=== PATIENT | male | born 1945 | race Caucasian/White ===

== ENCOUNTER → 2017-01-25 | Outpatient (CLI) | payer MEDICARE, OTHER ==
[~2017-01-25] MED LIST: AMLODIPINE BESY10 MG PO; BACLOFEN10 MG PO; CLOPIDOGREL BIS75 MG PO; COUMADIN4 MG PO; LIVALO4 MG PO; LO-DOSE ASPIRIN81 M1 PO; LOTENSIN20 MG PO; METOPROLOL SUCC50 MG PO; PERCOCET10 PO
--- NOTE | ~2017-01-25 | CO ---
Unit #: [id number] #: [id number] Patient: MAGDALENA BURNETT [id number] [address] [place], [place] [address] [id number] O MR#: [id number] NAME: MAGDALENA BURNETT ROOM: Age: 72 Sex: M Admission Date: 01/25/2017 : 1945 Attending Physician: Graham Verde M.D. Primary Care Physician: Primary Care Physician No CONSULTATION REPORT REASON FOR CONSULTATION Preoperative medical evaluation prior to left total knee arthroplasty, scheduled by Dr. Verde for 02/01/2017. HISTORY OF PRESENT ILLNESS The patient is a 71-year-old male, who presents to preprocedural screening for the reason as indicated above. He reports left knee pain, but has no other complaints at the time of this interview. 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 He denies upper chest, upper back, arm, neck, jaw pain or pressure. Denies dyspnea on exertion, shortness of air, orthopnea, and/or PND. He has never been diagnosed with obstructive sleep apnea. He denies lightheadedness, dizziness, presyncope, syncope, or palpitations. He has been evaluated by his adult education instructor, Dr. Jurado, and given clearance for the procedure with an okay to stop Plavix 5-7 days before but to continue low-dose aspirin. He has also been given clearance by his vascular surgeon, Dr. Josh Marino, as the patient is status post left SFA stent and intervention for peripheral arterial disease in 09/2016. Per review of that clearance note, the patient has been cleared for the surgery under the condition that the left total knee replacement be performed without the use of a tourniquet. Per the patient, Dr. Verde is aware of this condition. The patient has been evaluated by Dr. Verde and scheduled for the above-referenced procedure. PAST MEDICAL HISTORY 1. Osteoarthritis. 2. CAD, status post CABG, status post stent x3. 3. Hypertension. 4. Chronic kidney disease. 5. Hyperlipidemia. 6. Peripheral arterial disease, status post left SFA stent and balloon placement. PAST SURGICAL HISTORY 1. CABG x2 vessels. 2. Cardiac cath with stent placement. 3. Left SFA stent. The patient denies personal or family history of complications to anesthesia. ALLERGIES Denies latex allergy. Denies medication allergies. Unit #: [id number] #: [id number] Patient: MAGDALENA BURNETT CURRENT MEDICATIONS Metoprolol succinate 50 mg p.o. b.i.d., amlodipine besylate 10 mg p.o. every morning, clopidogrel bisulfate 75 mg p.o. every morning, low-dose aspirin EC 81 mg p.o. every morning, baclofen 10 mg p.o. b.i.d. for p.r.n. muscle spasms, Lotensin 20 mg p.o. b.i.d., Livalo 4 mg p.o. at bedtime. SOCIAL HISTORY Denies tobacco use, EtOH use, or illicit drug use. FAMILY HISTORY Per review of Dr. Verde's office note, hypertension. REVIEW OF SYSTEMS A 10-point review of systems is conducted and otherwise negative except as indicated under history of present illness above. PHYSICAL EXAMINATION GENERAL: A 71-year-old male, awake, alert, in no acute distress. VITAL SIGNS: Temperature 97.1, heart rate 61, respiratory rate 16, blood pressure 174/75, oxygen saturation 99% on room air. HEENT: Atraumatic and normocephalic. Sclerae anicteric. No discharge from eyes, ears, or nares. LYMPH: No preauricular, postauricular, tonsillar, submental, anterior, or posterior cervical adenopathy. ENDOCRINE: No thyromegaly, thyroid nodules, or tenderness. RESPIRATORY: Clear to auscultation in all hill bilaterally without wheezes, rhonchi, or rales. CARDIOVASCULAR: S1 and S2. Regular rate and rhythm without murmur or rub. GI: Bowel sounds are positive x4. Soft, nontender, nondistended. EXTREMITIES: No edema, cyanosis, or clubbing. MUSCULOSKELETAL: Strength 5/5 in all extremities bilaterally to flexion-extension. NEUROLOGIC: Alert and oriented x3. Speech clear. Follows directions during examination. DIAGNOSTIC STUDIES LABORATORY RESULTS: WBC 9.5, hemoglobin 16.4, hematocrit 47.5, platelets 229,000. Sodium 138, potassium 5.0, chloride 104, CO2 of 26, glucose 107, BUN 23, creatinine 1.4, calcium 9.4, AST 24, ALT 27, alkaline phos 65, bilirubin total 0.8, total protein 7.4, albumin 4.4, blood type O positive, antibody screen negative. Urinalysis; protein 3+, blood negative, bacteria negative. Urine culture not indicated at this time. PT 10.4, INR 1.0. MRSA nasal swab report pending at this time. IMAGING STUDIES: Two-view chest x-ray report pending at this time. CARDIOLOGY: 12-lead EKG, sinus bradycardia, otherwise normal ECG. Confirmatory report pending at this time. IMPRESSION The patient is a 71-year-old male, who presents to preprocedural screening for: 1. Preoperative medical evaluation prior to left total knee arthroplasty. The patient's Niño revised cardiac risk index based on information available today and risk factors is 0.4% to 0.5% and represents the rate of the patient's risk for fatal or nonfatal myocardial infarction, Unit #: [id number] #: [id number] Patient: MAGDALENA BURNETT RAY cardiopulmonary arrest, arrhythmia, and/or pulmonary edema. This has been discussed in detail with the patient, and he wishes to proceed with surgery as scheduled at this time. 2. Coronary artery disease, status post coronary artery bypass grafting, status post stent placement x3. The patient has been evaluated by his adult education instructor and has been given preoperative cardiac clearance given his risk is not modifiable and not prohibitive for planned elective surgery. We will continue the patient's beta michele and low-dose aspirin perioperatively. Decision to proceed with clopidogrel in view of no plan for tourniquet used during this procedure will be per Dr. Verde. 3. Hypertension. The patient's blood pressure is mildly elevated today. We will continue current blood pressure medications and adjust blood pressures accordingly based on blood pressure trends. 4. Chronic kidney disease. The patient's creatinine is 1.4 today. We will follow renal function closely and consult Nephrology if indicated postoperatively. 5. Hyperlipidemia. Continue home dose of Livalo postoperatively. 6. Peripheral arterial disease, status post left SFA balloon and stent placement. Again, the patient's vascular surgeon has cleared him for surgery under the condition that tourniquet is not used on the operative extremity. The patient states he will remind Dr. Verde of this prior to surgery. Thank you for allowing us to participate in the care of this patient. We will gladly follow him for postop medical management pending order of Dr. Verde. Dictated by... Fozia Shi A.P.R.N. for Elly Flores/devaughn TD: 01/26/2017 06:05 JOB #: [id number] CONSULTATION REPORT Page 1 of 1 X Fozia Shi [employer] MINISTRY DIRECTOR X CONSULTATION REPORT
--- NOTE | ~2017-01-25 | CR63 ---
[facility] A Service of [facility] & [facility] RADIOLOGY TEXT RESULTS PATIENT: MAGDALENA BURNETT LOCATION: [facility] : [birth year] UNIT #: [id number] AGE: [address]: Graham Verde MD SEX: M ORDER DR: [id number] [facility] [address] [place], [place] [address] [id number] O MR#: [id number] Acc #: [id number] NAME: MAGDALENA BURNETT : 1945 SEX: M STUDY DATE/TIME: 01/25/2017 12:52 UNIT: [facility] ROOM: STUDY DESCRIPTION: CR Chest 2 View Attending Physician: Graham Verde M.D. Referring Physician: Graham Verde M.D. Ordering Physician: Graham Verde M.D. Primary Care Physician: No Primary Care Physician MEDICAL IMAGING REPORT This report is preliminary unless electronic signature is present EXAM PA and lateral chest. DATE: 01/25/2017 at 12:52. HISTORY Preoperative evaluation for left knee surgery. Scheduled for total left knee replacement. Chronic kidney disease. High cholesterol. Previous CABG with coronary stent placements. COMPARISON None. FINDINGS Heart size is borderline enlarged with signs of prior CABG. Calcified granulomatous changes are present in the right upper lobe and right apex. No acute airspace disease is seen. Degenerative marginal osteophyte formation is present in the lower thoracic spine. No pleural effusion. IMPRESSION 1. Benign calcified granulomatous changes in the right upper lobe and right apex. 2. Borderline cardiac enlargement with CABG changes. 3. No acute chest findings. Dictated by... Rocio Velásquez M.D. THIS IS AN ELECTRONICALLY VERIFIED REPORT Rocio Velásquez M.D. at 01/26/2017 5:03 PM LLH/gz [facility] A Service of [facility] & [facility] RADIOLOGY TEXT RESULTS PATIENT: MAGDALENA BURNETT LOCATION: [facility] : [birth year] UNIT #: [id number] AGE: [address]: Graham Verde MD SEX: M ORDER DR: TD: 01/26/2017 09:59 JOB #: [id number] MEDICAL IMAGING REPORT Page 1 of 1 COPY
--- NOTE | ~2017-01-25 | EKG ---
PATIENT: MAGDALENA BURNETT UNIT #: [id number] Ventricular Rate: 55 BPM Atrial Rate: 55 BPM P-R Interval: 192 ms QRS Duration: 78 ms Q-T Interval: 430 ms QTC Calculation(Bezet): 411 ms P [place]: 9 degrees Calculated R [place]: -6 degrees Calculated T [place]: 31 degrees Diagnosis Line: Sinus bradycardia Diagnosis Line: Otherwise normal ECG Diagnosis Line: No previous ECGs available Diagnosis Line: Confirmed by JONNY COCHRAN MD ([id number]) on Diagnosis Line: 01/25/2017 2:27:37 PM INTERPRETING MD: DIMAS GUTIERRES
[2017-01-25 13:01] LABS: HEMATOCRIT 47.5 % (38.0-50.0); HEMOGLOBIN 16.4 gm/dL (13.0-16.0); MEAN CELL VOLUME 84.3 FL (83-96); MEAN CORPUSCULAR HEMOGLOBIN 29.1 PG (28-34); MEAN CORPUSCULAR HGB CONC 34.5 g/dL (30-36); MEAN PLATELET VOLUME 8.5 FL (6.5-11.5); RED BLOOD COUNT 5.63 X10e (3.90-5.60); RED CELL DISTRIBUTION WIDTH 14.9 % (11.0-15.5); WHITE BLOOD COUNT 9.5 X10e3 (4.0-10.5)
[2017-01-25 13:18] LABS: URINE APPEARANCE CLEAR; URINE BILIRUBIN NEG (NEG); URINE BLOOD NEG (NEG); URINE COLOR YELLOW; URINE GLUCOSE NEG (NEG); URINE KETONE NEG (NEG); URINE LEUKOCYTE ESTERASE NEG (NEG); URINE NITRATE NEG (NEG); URINE PROTEIN 3+ (NEG); URINE SPECIFIC GRAVITY 1.018 (1.003-1.035); URINE UROBILINOGEN 0.2 MG/DL (NEG)
[2017-01-25 13:20] LABS: URBCS1 AUWI 0-2 /[HPF] (0-2); URINE BACTERIA AUWI NEG (NEGATIVE); URINE SOURCE CLEAN CATCH; URINE SQUAMOUS EPITHELIAL CELL NONE SEEN /[HPF]; UWBCS1 AUWI 0-2 (0-5)
[2017-01-25 13:21] LABS: CULTURE INDICATED? NO
[2017-01-25 13:30] LABS: PROTHROMBIN TIME (PATIENT) 10.4 SECONDS (10.0-11.7)
[2017-01-25 13:31] LABS: ALBUMIN SERUM 4.4 g/dL (3.5-5.0); BILIRUBIN,TOTAL 0.8 mg/dL (0.2-2.0); BUN/CREATININE RATIO 16.42; CALCIUM SERUM 9.4 mg/dL (8.4-10.2); CREATININE SERUM 1.4 mg/dL (0.6-1.4); GLOM FILT RATE Estimated 49.2 mL/min (>60); PROTEIN TOTAL SERUM 7.4 g/dL (6.0-8.3)
== END | disposition home or self-care (01) ==
LOC: CAMB 12:00
PROVIDERS: Orthopaedic Surgery
DX: Z01.818 Encounter for other preprocedural examination (principal); M17.12 Unilateral primary osteoarthritis, left knee; I12.9 Hypertensive chronic kidney disease with stage 1 through stage 4 chronic kidney disease, or unspecified chronic kidney disease; N18.9 Chronic kidney disease, unspecified; I73.9 Peripheral vascular disease, unspecified; E78.5 Hyperlipidemia, unspecified; R00.1 Bradycardia, unspecified; I25.10 Atherosclerotic heart disease of native coronary artery without angina pectoris; Z95.1 Presence of aortocoronary bypass graft
CPT/HCPCS: 36415; 71020; 80053; 81003; 85027; 85610; 86850; 86900; 86901; 87070; 93005

== ENCOUNTER 2017-02-01 05:16 | Inpatient (IN) | payer MEDICARE ==
[~2017-02-01] VITALS: Ht 182.9 cm; Wt 86.3 kg
--- NOTE | ~2017-02-01 | OR ---
Unit #: [id number] #: [id number] Patient: MAGDALENA BURNETT [id number] [address] [place], [place] [address] [id number] I MR#: [id number] NAME: MAGDALENA BURNETT ROOM: [facility] Date of Procedure: 02/01/2017 Admission Date: 02/01/2017 Surgeon: Graham Verde M.D. : 1945 Attending Physician: Graham Verde M.D. Primary Care Physician: Generic Doctor Not In System OPERATIVE REPORT PREOPERATIVE DIAGNOSIS Primary localized osteoarthritis of the left knee. POSTOPERATIVE DIAGNOSIS Primary localized osteoarthritis of the left knee. PROCEDURE PERFORMED Left total knee. ASSISTANTS Calin and Yue. ANESTHESIA Adductor canal block plus general. BLOOD LOSS 200 mL. INDICATIONS FOR PROCEDURE This is a 72-year-old with severe pain in his left knee. He has had pain for months, getting progressively worse. It now limits walking, standing, and sleeping. He has tried injections and anti-inflammatories with no relief of his discomfort. X-rays show he has [id number] with subchondral sclerosis and periarticular osteophytes. He is brought to the operating room for left total knee. DESCRIPTION OF PROCEDURE The patient was brought to the holding and given 2 g of Kefzol, this will be continued for 23 hours, brought back to the operating room after an adductor canal block was performed and given a general anesthetic. The left leg was prepped and draped in a sterile fashion. A straight anterior skin incision was made. Subcutaneous dissected away and a medial arthrotomy was performed. Patella was slid to the side. Osteophytes removed from the femur. The intramedullary guide was used and a 6-degree valgus cut was made on the distal femur. The femur was sized and found to be a size 5 for the [employer] Knee System. The anterior-posterior cutting block was applied. Rotation was checked in the knee. Anterior and posterior cuts were made along with the chamfer cuts. Proximal tibial cut was made using a 0-degree cutting block, it was sized at a 4. Any remaining meniscal fragments debrided and posterior condylar osteophytes were removed. The posterior capsule was injected with ropivacaine mixture and after this was done, the trials were positioned. Once again, it was a Unit #: [id number] #: [id number] Patient: MAGDALENA BURNETT size 5 femur and size 4 tibia with an 8 insert. The knee came to full extension and had good stability in extension and flexion. Rotation of the tibia was marked and the external alignment guide showed appropriate alignment of the limb. The patella was grasped with 2 towel clips, measured 26 mm thick, cut smooth and a 41 was the appropriate size patella. The 3 drill holes were made. Trial patella applied and it tracked properly. We then removed all the trials, used the drill and punch for the tibial tray. The knee was irrigated and dried while the cement was mixed and all 3 components were cemented simultaneously. Once again, it was a size 5 femur, size 4 tibia, and a 41 patella from the [employer] Sigma Knee System. Any excess cement was removed. The ropivacaine mixture was injected. The knee was irrigated with Betadine and bacitracin and then closed using 0 Ethibond in the arthrotomy, 0 and 2-0 Vicryl in the subcutaneous, and pete in the skin. Blood loss was about 200 mL. We did not use a tourniquet, because of the patient's peripheral vascular disease. Dictated by... Elly Reeves/devaughn TD: 02/01/2017 14:07 JOB #: [id number] OPERATIVE REPORT Page 1 of 1 X Graham Verde MD PROCEDURE OPERATIVE NOTE
--- NOTE | ~2017-02-01 | DS ---
Unit #: [id number] #: [id number] Patient: MAGDALENA BURNETT [id number] [address] [facility]. [place], [place] [address] [id number] I MR#: [id number] NAME: MAGDALENA BURNETT ROOM: 449 Age: 72 Sex: M Admission Date: 02/01/2017 : 1945 Discharge Date: 02/02/2017 Attending Physician: Graham Verde M.D. Primary Care Physician: Generic Doctor Not In System DISCHARGE SUMMARY ADMITTING DIAGNOSIS Severe osteoarthritis of the left knee. PROCEDURE Left total knee arthroplasty. ADMITTING PHYSICIAN Dr. Graham Verde HOSPITAL COURSE The patient was admitted to [facility] for severe osteoarthritis/bone on bone osteoarthritis of the left knee. The patient had undergone the above procedure. The patient had done well postoperatively. Today, the patient is in stable condition. His temperature is 99.0, blood pressure is 153/55, heart rate is 80 and regular, respirations 16. Incision is healing well. Neurovascular exam is intact, 2+ pulses in the lower extremity. The plan will be for discharge home later today under the care of home health. DISPOSITION Home with home health. PERTINENT LABS INR is 1.8, WBC is 9.5, hemoglobin 12.6. MEDICATIONS Per Med Rec list. He will be on all the regular medications with addition of Coumadin and 1 dose of Lovenox today. FOLLOWUP INSTRUCTIONS The patient will be discharged home later today. Will need PT and INRs done on 02/03, 02/04, 02/05, 02/08, 02/11, 02/15, 02/18, 02/22, 02/25 and 03/01. Call the results to [phone] or fax to May at [phone]. The patient will wear LALITO hose during the day and off at night. Patient should not drive until seen by Dr. Verde in 6 weeks. Patient will begin physical therapy including active, active assist, range of motion, strengthening, progressive ambulation, begin with a walker, progress to a cane as tolerated. Dictated by... Huang Layton P.A.-C- for Graham Verde M.D. Unit #: [id number] #: [id number] Patient: MAGDALENA BURNETT MAEGAN Meyer TD: 02/02/2017 09:00 JOB #: [id number] DISCHARGE SUMMARY Page 1 of 1 X X DISCHARGE SUMMARY
[2017-02-01 06:30] LABS: PROTHROMBIN TIME (PATIENT) 10.9 SECONDS (10.0-11.7)
[2017-02-01] MEDS ORDERED: METOPROLOL SUCC50 MG PO (13:26)
[2017-02-01] MEDS ORDERED: AMLODIPINE BESY10 MG PO (13:27)
[2017-02-01] MEDS ORDERED: LO-DOSE ASPIRIN81 M1 PO (13:28)
[2017-02-01] MEDS ORDERED: CLOPIDOGREL BIS75 MG PO (13:28)
[2017-02-01] MEDS ORDERED: BACLOFEN10 MG PO (13:29)
[2017-02-01] MEDS ORDERED: LOTENSIN20 MG PO (13:29)
[2017-02-01] MEDS ORDERED: LIVALO4 MG PO (13:32)
[2017-02-02 03:22] LABS: HEMATOCRIT 35.7 % (38.0-50.0); HEMOGLOBIN 12.6 gm/dL (13.0-16.0)
[2017-02-02 03:41] LABS: INR 1.8
[2017-02-02 03:45] LABS: CALCIUM SERUM 8.8 mg/dL (8.4-10.2); CREATININE SERUM 1.5 mg/dL (0.6-1.4); GLOM FILT RATE Estimated 45.2 mL/min (>60); MAGNESIUM 1.8 mg/dL (1.6-3.0); POTASSIUM 4.6 mmol/L (3.5-5.1)
[2017-02-02 03:46] LABS: PROTHROMBIN TIME (PATIENT) 19.2 SECONDS (10.0-11.7)
[2017-02-02] MEDS ORDERED: PERCOCET10 PO (09:33)
[2017-02-02] MEDS ORDERED: COUMADIN4 MG PO (09:34)
== END 2017-02-02 13:13 | disposition home health service (06) | DRG 470 ==
LOC: CSUR 05:16 → CPACUOF 06:40 → CSUR 07:00 → CPACUOF 08:46 → CSUR 08:46 → C4B 08:46 → CPACUOF 10:28 → C4B 10:28
PROVIDERS: Orthopaedic Surgery
PROC: 0SRD0J9 Replacement of Left Knee Joint with Synthetic Substitute, Cemented, Open Approach (ICD-10-PCS; principal; 2017-02-01 07:00)
DX: M17.12 Unilateral primary osteoarthritis, left knee (principal); I12.9 Hypertensive chronic kidney disease with stage 1 through stage 4 chronic kidney disease, or unspecified chronic kidney disease; N18.9 Chronic kidney disease, unspecified; I25.10 Atherosclerotic heart disease of native coronary artery without angina pectoris; Z95.1 Presence of aortocoronary bypass graft; Z95.5 Presence of coronary angioplasty implant and graft; E78.5 Hyperlipidemia, unspecified
CPT/HCPCS: 80048; 83735; 85014; 85018; 85610; 94010; 94760; 97110; 97116; 97161; 97165; 97530; 97535; C1713; C1776; G8978-GP; G8979-GP; G8987-GO; G8988-GO; G8989-GO; J0131; J0171; J0690; J0735; J1100; J1170; J1650; J1885; J2405; J2795; J3010